=== PATIENT | male | born 1960 | race Two or more races ===

== ENCOUNTER 2023-10-13 15:36 | Emergency (ER) | payer MEDICAID, MEDICARE ==
[~2023-10-13] VITALS: Ht 177.8 cm; Wt 98.0 kg
[2023-10-13 15:41] VITALS: O2SAT 96
[2023-10-13] MEDS: LORAZEPAM 2MG/ML INJ IV ONE (16:12)
[2023-10-13] MEDS: LEVETIRACETAM 500MG PREMIX 100 ML IV ONE ×2 (16:14→16:15)
[2023-10-13 17:00] LABS: BASOPHILS % 0.5 % (0.0-2.0); EOSINOPHILS % 0.1 % (0.0-5.0); HEMATOCRIT. 42.1 % (42.0-52.0); HEMOGLOBIN. 14.4 g/dL (14.0-18.0); LYMPHOCYTES % 10.7 % (20.0-50.0); MEAN CORPUSCULAR HEMOGLOBIN 31.5 pg (28.0-32.0); MEAN CORPUSCULAR HGB CONC 34.2 g/dL (31.0-37.0); MEAN CORPUSCULAR VOLUME 92.1 fL (80.0-94.0); MEAN PLATELET VOLUME 6.8 fl (7.4-10.4); MONOCYTES % 8.3 % (2.0-8.0); NEUTROPHILS % 80.4 % (40.0-76.0); PLATELET 286 x1000/uL (130-400); RED BLOOD CELL COUNT 4.57 mill/uL (4.7-6.1); RED CELL DISTRIBUTION WIDTH 15.1 % (11.6-14.6); WHITE BLOOD COUNT 7.8 x1000/uL (4.5-11.0)
[2023-10-13 17:05] LABS: CHLORIDE 112 mEq/L (98-107); POTASSIUM 4.4 mEq/L (3.5-5.1); SODIUM 140 mEq/L (136-145)
[2023-10-13 17:06] LABS: CALCIUM 8.6 mg/dL (8.7-10.4); CARBON DIOXIDE 21 mEq/L (21-32)
[2023-10-13 17:11] LABS: GLUCOSE 103 mg/dL (70-105); UREA NITROGEN BLOOD 13 mg/dL (9-23)
[2023-10-13 17:12] LABS: TROPONIN I HIGH SENSITIVITY 49 ng/L (3.0-53)
[2023-10-13 17:14] LABS: ETHANOL BLOOD < 10 mg/dL (<10)
[2023-10-13 17:56] LABS: CLARITY URINE TURBID (CLEAR); COLOR URINE YELLOW (YELLOW); GLUCOSE URINE NEGATIVE (NEGATIVE); KETONES URINE NEGATIVE (NEGATIVE); LEUKOCYTE ESTERASE URINE NEGATIVE (NEGATIVE); NITRITE URINE NEGATIVE (NEGATIVE); OCCULT BLOOD URINE TRACE (NEGATIVE); PROTEIN URINE TRACE (NEGATIVE); SPECIFIC GRAVITY URINE 1.016 (1.005-1.030); UROBILINOGEN URINE 0.2 E.U./dL (0.2-1.0)
[2023-10-13 18:04] LABS: BACTERIA URINE 2+; SQUAMOUS EPITHELIAL CELL URINE FEW /lpf (RARE/1+)
[2023-10-13 18:05] LABS: RBC URINE 0-2 /hpf (0-2); URIC ACID CRYSTALS URINE 2+ /lpf; WBC URINE 0-2 /hpf (0-2)
[2023-10-13 18:06] VITALS: TEMP 98.8
[2023-10-13 18:10] LABS: *AMPHETAMINES SCREEN URINE NEGATIVE (NEGATIVE); *BARBITURATES SCREEN URINE NEGATIVE (NEGATIVE); *BENZODIAZEPINES SCREEN URINE NEGATIVE (NEGATIVE); *COCAINE SCREEN URINE NEGATIVE (NEGATIVE); METHADONE URINE SCREEN NEGATIVE (NEGATIVE); OPIATES URINE SCREEN NEGATIVE (NEGATIVE)
[2023-10-13 18:11] LABS: CANNABINOID URINE SCREEN PRESUMPTIVE POSITIVE (NEGATIVE); ECSTASY MDMA SCREEN URINE NEGATIVE (NEGATIVE); PHENCYCLIDINE URINE SCREEN NEGATIVE (NEGATIVE)
[2023-10-13 20:17] VITALS: BP 128/74; PULSE 82; RESP 18
== END 2023-10-13 20:43 | disposition home or self-care (01) ==
LOC: ER 15:43
DX: G40.909 Epilepsy, unspecified, not intractable, without status epilepticus (principal)
CPT/HCPCS: 80305; 80048; 81003; 80320; 80185; 85025; 84484; 36415; 96365; 96375; 82542; 99284; J1953; J2060; G0480